=== PATIENT | male | born 1950 | race Caucasian/White ===

== ENCOUNTER → 2016-07-10 | Outpatient (CLI) | payer OTHER ==
[~2016-07-10] MED LIST: ATOR10TA88 PO; CALC600T9 PO; CANA1TAB3 PO; GLIM4TAB PO; METF1000 PO; RXC5 PO; SILD50TA PO; SIMV40TA4 PO; SITA100T3 PO; TELM80TA4 PO
== END | disposition home or self-care (01) ==
LOC: C.PATHSPEC 15:23
PROVIDERS: ATTEND Dermatology
DX: L81.4 Other melanin hyperpigmentation (principal); L57.0 Actinic keratosis

== ENCOUNTER → 2016-08-19 | Outpatient (CLI) | payer OTHER ==
--- NOTE | 2016-08-19 10:36 | DIAGNOSTIC IMAGING REPORT ---
CT LUNG SCREENING, LOW DOSE WITH COMPUTER-AIDED DETECTION (CAD) CLINICAL HISTORY: NICOTINE DEPENDENCE, LOW DOSE LUNG SCREENING COMPARISON STUDY: Chest CT dated 05/18/2013. CT DOSE: 93.81 mGy.cm TECHNIQUE: Low-dose helical CT was acquired without intravenous contrast from lung apices to bases and reconstructed at 2.5 mm every 2 mm. CAD was utilized for this study. FINDINGS: Thyroid: Imaged portions of the thyroid gland are normal in appearance. Thoracic aorta: There is evidence carotid calcification of the thoracic aorta. There is mild aneurysmal dilatation of the ascending thoracic aorta which measures up to 4.2 cm in diameter. The remainder of the thoracic aorta is normal in caliber and the arch demonstrates bovine variant anatomy. Heart: The heart is top normal in size and without pericardial effusion. There is moderate to advanced atherosclerotic calcification of the coronary arteries. The pulmonary trunk is dilated measuring up to 3.5 cm. This suggests pulmonary artery hypertension. Lungs and pleural spaces: Emphysematous change is noted. No airspace consolidation or pleural effusion is identified. The trachea and central airways are clear. Scattered calcified granulomas are observed. No concerning pulmonary lesion is seen. Mediastinum: There is no mediastinal lymphadenopathy. Nancy: Not well assessed without IV contrast. Axilla: Clear. Upper abdomen: There is a tiny hiatal hernia. Partially visualized upper abdominal viscera is otherwise within normal limits. Skeletal structures: There are no lytic or blastic osseous lesions. Degenerative change is noted throughout the thoracic spine. IMPRESSION: 1. Emphysema. 2. There is no airspace consolidation or pleural effusion. 3. No concerning pulmonary lesion is identified. See below. 4. There is mild aneurysmal dilatation of the ascending thoracic aorta which measures up to 4.2 cm diameter. Consider thoracic surgical follow-up. CAD FINDINGS: Overall Lung RADS Category: 1 Lung RADS Management Recommendation: Lung-RADS 1: Continue annual screening in 12 months. Lung RADS Follow Up Date: 2017-08-19 Lung RADS Nodule ID: Electronically signed by: Noah Shaw M.D. 08/19/2016 10:34 AM Dictated Date/Time: 08/19/2016 10:22 AM
== END | disposition home or self-care (01) ==
LOC: C.CTS 09:52
PROVIDERS: ATTEND Internal Medicine
DX: F17.200 Nicotine dependence, unspecified, uncomplicated (principal); J43.9 Emphysema, unspecified; I71.2 Thoracic aortic aneurysm, without rupture

== ENCOUNTER → 2016-11-19 | Outpatient (CLI) | payer OTHER ==
[~2016-11-19] MED LIST changes: +ATOR10TA82 PO; -ATOR10TA88 PO
== END ==
LOC: C.PATHSPEC 17:19
PROVIDERS: ATTEND Plastic Surgery
DX: C43.59 Malignant melanoma of other part of trunk (principal)

== ENCOUNTER → 2016-11-24 | Outpatient (CLI) | payer OTHER ==
[2016-11-24 12:48] LABS: BASO % 0.6 %; BASO ABS # 0.04 K/uL (0-0.2); COMPLETE YES; EOS % 1.6 %; HEMATOCRIT 46.4 % (42-52); IG% 0.3 %; LYMPH % 28.2 %; LYMPH ABS # 1.97 K/uL (1.2-3.4); MEAN CELL VOLUME 86.9 fL (80-100); MEAN CORPUSCULAR HEMOGLOBIN 30.1 pg (25-34); MEAN CORPUSCULAR HGB CONC 34.7 g/dl (32-36); MEAN PLATELET VOLUME 9.9 fL (7.4-10.4); MONO % 6.9 %; NEUT % 62.4 %; PLATELET COUNT 193 K/uL (130-400); RED BLOOD COUNT 5.34 M/uL (4.7-6.1); WHITE BLOOD COUNT 6.98 K/uL (4.8-10.8)
[2016-11-24 13:25] LABS: ESTIMATED AVERAGE GLUCOSE 160 mg/dl; HA1C FLAG Normal (Normal)
[2016-11-24 14:27] LABS: ALT/SGPT 25 U/L (12-78); BLOOD UREA NITROGEN 11 mg/dl (7-18); BUN/CREATININE RATIO 11.3 (10-20); CALCIUM 9.9 mg/dl (8.5-10.1); CARBON DIOXIDE 31 mmol/L (21-32); CHLORIDE 98 mmol/L (98-107); CHOLESTEROL 116 mg/dl (0-200); CREATININE 0.95 mg/dl (0.60-1.40); GLUCOSE 102 mg/dl (70-99); SODIUM 136 mmol/L (136-145)
[2016-11-24 14:30] LABS: ALB/GLOB RATIO 1.4 (0.9-2); ALKALINE PHOSPHATASE 70 U/L (45-117); AST/SGOT 14 U/L (15-37); CHOLESTEROL/HDL RATIO 2.6; HDL CHOLESTEROL 45 mg/dl; LDL CHOLESTEROL CALCULATED 50 mg/dl; TRIGLYCERIDES 107 mg/dl (0-150); VERY LOW DENSITY LIPOPROT CALC 21 mg/dl
== END | disposition home or self-care (01) ==
LOC: C.LABBFT 08:42
PROVIDERS: ATTEND Internal Medicine
DX: E11.9 Type 2 diabetes mellitus without complications (principal); E55.9 Vitamin D deficiency, unspecified; E78.5 Hyperlipidemia, unspecified

== ENCOUNTER → 2017-01-15 | Outpatient (CLI) | payer OTHER ==
[~2017-01-15] MED LIST changes: -ATOR10TA82 PO; +ATOR10TA88 PO
[2017-01-15 14:43] LABS: BLOOD UREA NITROGEN 10 mg/dl (7-18)
== END | disposition home or self-care (01) ==
LOC: C.LABBC 11:29
PROVIDERS: ATTEND Internal Medicine
DX: E11.9 Type 2 diabetes mellitus without complications (principal); M54.16 Radiculopathy, lumbar region; R15.9 Full incontinence of feces

== ENCOUNTER → 2017-01-22 | Outpatient (CLI) | payer OTHER ==
[~2017-01-22] MED LIST changes: +GADAVIST IV PRN
--- NOTE | 2017-01-22 10:43 | DIAGNOSTIC IMAGING REPORT ---
ORBIT RADIOGRAPHS 3 VIEWS HISTORY: pre-MRI screening. COMPARISON: Head CT May 18, 2013 FINDINGS: There are no radiopaque foreign bodies identified within the orbits. IMPRESSION: No radiopaque foreign bodies identified within the orbits. Electronically signed by: Richard Pak M.D. 01/22/2017 10:42 AM Dictated Date/Time: 01/22/2017 10:41 AM
--- NOTE | 2017-01-22 12:14 | DIAGNOSTIC IMAGING REPORT ---
LUMBAR SPINE MRI WITH AND WITHOUT CONTRAST HISTORY: Lower body dysfunction. Loss of strength within the lower extremities. LUMBAR RADICULOPATHY TECHNIQUE: Multiplanar multisequence MRI of the lumbar spine was performed both before and after the intravenous administration of contrast. COMPARISON: Lumbar spine 01/16/2015. FINDINGS: For the purpose of the report the L5-S1 disc space will be located on axial image 27 of 30. No fracture or subluxation. The conus terminates at the T12-L1 disc space level. Severe disc space narrowing at L3-L4 and L4-L5 with endplate osteophytes. Mild facet degenerative changes throughout the lumbar spine. Paraspinal soft tissues are unremarkable. A 6 mm cyst within the left kidney. Minimal endplate enhancement at L3-L4 is likely due to the long-standing degenerative change. L1-L2: No significant central canal or neural foraminal narrowing. Tiny broad-based posterior disc bulge. L2-L3: Small broad-based posterior disc bulge with facet hypertrophy resulting in minimal central canal and mild bilateral neural foraminal narrowing. There is also a left foraminal annular tear. L3-L4: Broad-based posterior disc bulge with severe ligamentum hypertrophy and mild facet hypertrophy. This results in severe central canal narrowing with the thecal sac measuring 5 mm in AP diameter. Moderate right and mild left neural foraminal narrowing. L4-L5: Small broad-based posterior disc bulge resulting in mild central canal and [id number] bilateral neural foraminal narrowing. L5-S1: No significant central canal or neural foraminal narrowing. IMPRESSION: 1. Broad-based posterior disc bulge with severe ligamentum hypertrophy at L3-L4 resulting in severe central canal narrowing. There is also moderate right and mild left neural foraminal narrowing at this level. 2. Mild central canal and [id number]-agmcfveh bilateral neural foraminal narrowing at L4-L5. Electronically signed by: Av Cummins M.D. 01/22/2017 12:13 PM Dictated Date/Time: 01/22/2017 12:05 PM
== END | disposition home or self-care (01) ==
LOC: C.MRIBC 10:14
PROVIDERS: ATTEND Internal Medicine
DX: M51.16 Intervertebral disc disorders with radiculopathy, lumbar region (principal)

== ENCOUNTER 2017-03-02 05:48 | Inpatient (IN) | payer OTHER ==
[2017-02-25 11:49] VITALS: BMI 25.0
--- NOTE | 2017-02-25 12:33 | PAT Medication Instructions ---
Service Date Feb 25, 2017. Current Home Medication List Atorvastatin (Lipitor), 10 MG PO HS Calcium Carbonate-Vitamin D (Calcium + D), 600 MG PO BID Canagliflozin (Invokana), 150 MG PO BID Glimepiride (Amaryl), 4 MG PO BID Metformin Hcl (Glucophage), 1,000 MG PO BID Sildenafil Citrate (Viagra), 50 MG PO PRN Sitagliptin Phosphate (Januvia), 100 MG PO QPM Telmisartan-Hydrochlorothiazid (Micardis Hct 80MG/12.5MG), 1 TAB PO QAM Medication Instructions For Your Scheduled Surgery - Hold the following medications 48 hours prior to surgery: Metformin Hcl (Glucophage), 1,000 MG PO BID - Hold the following medications the morning of surgery: Calcium Carbonate-Vitamin D (Calcium + D), 600 MG PO BID Canagliflozin (Invokana), 150 MG PO BID Glimepiride (Amaryl), 4 MG PO BID Sildenafil Citrate (Viagra), 50 MG PO PRN Telmisartan-Hydrochlorothiazid (Micardis Hct 80MG/12.5MG), 1 TAB PO QAM - Take the following medications as scheduled the night before surgery: Sitagliptin Phosphate (Januvia), 100 MG PO QPM Sildenafil Citrate (Viagra), 50 MG PO PRN Glimepiride (Amaryl), 4 MG PO BID Canagliflozin (Invokana), 150 MG PO BID Calcium Carbonate-Vitamin D (Calcium + D), 600 MG PO BID Atorvastatin (Lipitor), 10 MG PO HS If you have any questions please call us at [phone] or [phone] or [phone]
[2017-02-25 12:42] LABS: URINE APPEARANCE CLEAR (CLEAR); URINE BILIRUBIN NEG (NEG); URINE COLOR YELLOW; URINE NITRITE NEG (NEG); URINE PH 5.5 (4.5-7.5); URINE SPECIFIC GRAVITY 1.015 (1.000-1.030); UROBILINOGEN NEG (NEG); ZZUR CULT IF INDIC CLEAN CATCH NO
[2017-02-25 12:49] LABS: MANUAL MICROSCOPIC REQUIRED? NO; REVIEW REQ? NO
[2017-02-25 14:22] LABS: BASO % 0.5 %; BASO ABS # 0.04 K/uL (0-0.2); COMPLETE YES; EOS % 1.6 %; HEMATOCRIT 45.8 % (42-52); IG% 0.5 %; LYMPH % 33.7 %; MEAN CELL VOLUME 87.7 fL (80-100); MEAN CORPUSCULAR HEMOGLOBIN 30.8 pg (25-34); MEAN CORPUSCULAR HGB CONC 35.2 g/dl (32-36); MEAN PLATELET VOLUME 9.7 fL (7.4-10.4); MONO % 10.5 %; NEUT % 53.2 %; PLATELET COUNT 213 K/uL (130-400); RED BLOOD COUNT 5.22 M/uL (4.7-6.1); WHITE BLOOD COUNT 7.42 K/uL (4.8-10.8)
[2017-02-25 14:41] LABS: BUN/CREATININE RATIO 8.9 (10-20); CALCIUM 10.2 mg/dl (8.5-10.1); CREATININE 0.9 mg/dl (0.60-1.40); POTASSIUM 4.3 mmol/L (3.5-5.1)
[2017-03-02] VITALS (12 sets, daily range): BP systolic 87–123; BP diastolic 53–84; PULSE 70–90; TEMP 36.3–36.6; O2SAT 95–100; Ht 185.4 cm; Wt 87.1 kg
[~2017-03-02] VITALS: Ht 185.4 cm; Wt 87.1 kg
[~2017-03-02 05:48] MED LIST changes: -GADAVIST IV PRN; +IV FLUIDS COMPLETED PRN; -RXC5 PO; -SIMV40TA4 PO
[2017-03-02] MEDS ORDERED: CEFAZOLIN 2000 MG/60 ML D5W IV SCH (06:00)
[2017-03-02] MEDS ORDERED: LACTATED RINGER'S 1000ML 1,000 ML IV SCH (06:00)
[2017-03-02] MEDS ORDERED: BUPIVACAINE/EPINEPHRINE 0.5% MPF 1:200,000 30 ML VIAL ONE (06:56)
[2017-03-02] MEDS ORDERED: BACITRACIN 50000 UNIT VIAL ONE (06:57)
[2017-03-02] MEDS ORDERED: ONDANSETRON INJ 2 MG/ML 2 ML VIAL ONE (07:08)
[2017-03-02] MEDS ORDERED: DEXAMETHASONE SOD INJ 4 MG/ML VIAL ONE (07:08)
[2017-03-02] MEDS ORDERED: GLYCOPYRROLATE INJ 0.2 MG/ML VIAL ONE (07:08)
[2017-03-02] MEDS ORDERED: PROPOFOL IV EMULSION 10 MG/ML 20 ML VIAL IV ONE (07:08)
[2017-03-02] MEDS ORDERED: NEOSTIGMINE METHYLSULFATE 1 MG/ML 10ML VIAL ONE (07:08)
[2017-03-02] MEDS ORDERED: HYDROmorphone INJ 2 MG/ML SYR/VIAL ONE (07:08)
[2017-03-02] MEDS ORDERED: LIDOCAINE HCL 2% 2 ML VIAL (20MG/ML) ONE (07:08)
[2017-03-02] MEDS ORDERED: MIDAZOLAM HCL 1 MG/ML 2ML VIAL ONE (07:08)
[2017-03-02] MEDS ORDERED: FENTANYL CITRATE INJ 50 MCG/1 ML 2 ML VIAL ONE (07:08)
[2017-03-02] MEDS ORDERED: ROCURONIUM BROMIDE 10 MG/ML 5 ML VIAL IV ONE ×2 (07:08→09:48)
--- NOTE | 2017-03-02 07:29 | History & Physical Bridge Note ---
H&P Re-Evaluation Bridge Note: I have examined the patient, reviewed the History & Physical and in the interval since the performance of the History & Physical I have noted the following changes of clinical significance: No changes noted
--- NOTE | 2017-03-02 07:30 | History and Physical ---
History & Physical Date Mar 02, 2017. Chief Complaint Back and leg pain History of Present Illness The patient is a 66 year old male with complaints of back and leg pain Allergies Coded Allergies: No Known Allergies (Unverified , 03/02/17) Home Medications Scheduled Atorvastatin (Lipitor), 10 MG PO HS Calcium Carbonate-Vitamin D (Calcium + D), 600 MG PO BID Canagliflozin (Invokana), 150 MG PO BID Glimepiride (Amaryl), 4 MG PO BID Metformin Hcl (Glucophage), 1,000 MG PO BID Sildenafil Citrate (Viagra), 50 MG PO PRN Sitagliptin Phosphate (Januvia), 100 MG PO QPM Telmisartan-Hydrochlorothiazid (Micardis Hct 80MG/12.5MG), 1 TAB PO QAM Diagnosis Lumbar spinal stenosis Plan of Treatment Lumbar decompression and fusion L3 to L5
[2017-03-02] MEDS ORDERED: ALBUT/IPRATROP 3MG/0.5MG NEB 3 ML VIAL INH STA (07:53)
[2017-03-02] MEDS ORDERED: PHENYLEPHRINE 100MCG/ML 5ML SYR ONE (08:25)
[2017-03-02] MEDS ORDERED: EpHEDrine SULFATE INJ 50 MG/ML AMP IV PRN (08:30)
[2017-03-02] MEDS ORDERED: PHENYLEPHRINE 100MCG/ML 5ML SYR IV PRN (08:30)
[2017-03-02] MEDS ORDERED: ONDANSETRON INJ 2 MG/ML 2 ML VIAL IV PRN ×2 (08:30→09:45)
[2017-03-02] MEDS ORDERED: ATROPINE SULFATE 0.1 MG/ML 5ML SYR IV PRN (08:30)
[2017-03-02] MEDS ORDERED: hydrOXYzine HCL 25 MG TAB PO PRN (09:45)
[2017-03-02] MEDS ORDERED: LORAZEPAM 0.5 MG TAB PO PRN (09:45)
[2017-03-02] MEDS ORDERED: SODIUM CHLORIDE 0.9% 1000ML 1,000 ML IV SCH (09:45)
[2017-03-02] MEDS ORDERED: BISACODYL 10 MG SUPP PR PRN (09:45)
[2017-03-02] MEDS ORDERED: DO NOT ADMINISTER FLU VACCINE PRN ×3 (09:45)
[2017-03-02] MEDS ORDERED: ACETAMINOPHEN IV 100 ML IV PRN (09:45)
[2017-03-02] MEDS ORDERED: DO NOT ADMINISTER PNEUMOCOCCAL VACCINE PRN ×2 (09:45)
[2017-03-02] MEDS ORDERED: SOD PHOSPHATE/SOD BIPHOSPHATE ENEMA 132 ML BTL PR PRN (09:45)
[2017-03-02] MEDS ORDERED: ACETAMINOPHEN 500 MG TAB PO PRN (09:45)
[2017-03-02] MEDS ORDERED: MAGNESIUM HYDROXIDE SUSP 30 ML UDC PO PRN (09:45)
[2017-03-02] MEDS ORDERED: FAMOTIDINE 20 MG TAB PO PRN (09:45)
[2017-03-02] MEDS ORDERED: PROMETHAZINE HCL INJ 12.5 MG in SODIUM CHLORIDE 0.9% 50ML 50 ML IV PRN (09:45)
[2017-03-02] MEDS ORDERED: DC PCA PRN (09:45)
[2017-03-02] MEDS ORDERED: LORAZEPAM INJ 0.5 MG in SYRINGE 0.75 ML IV PRN (09:45)
[2017-03-02] MEDS ORDERED: METOCLOPRAMIDE HCL INJ 5 MG/ML 2 ML VIAL IV PRN (09:45)
[2017-03-02] MEDS ORDERED: NALOXONE HCL 0.4 MG/1 ML VIAL/CARP IV PRN ×2 (09:45)
--- NOTE | 2017-03-02 09:51 | [facility] Operative Report ---
Operative Report Operative Date Mar 02, 2017. Pre-Operative Diagnosis Lumbar Spinal Stenosis Post-Operative Diagnosis Lumbar Spinal Stenosis Procedure(s) Performed #1 lumbar decompression medial facetectomy foraminotomies L2 3 L3 4 L4 5. #2 posterior spinal fusion L3 4 L4 5. #3 placement of posterior segmental instrumentation L3 4 L4 5 #4 placement of locally harvested morcellized autograft in the posterior lateral gutters. #5 placement of ostial amp bone graft in the posterior lateral gutters. Surgeon Dr. Navarrete Sandwich Hand Surgeon(s) Zeynep Barrow PA-C Findings Severe spinal stenosis Specimens none per surgeon Description of Procedure Patient was met with preoperatively case discussed all questions are dressed. After informed consent patient was taken to the operative suite underwent intubation placed in a prone position on the Maxim table on top of the Fer frame. All bony prominences were well-padded eyes inspected to ensure no external pressure. The lumbar spines prepped and draped in normal sterile fashion. Sharp dissection with the assistance of Bovie cautery was performed onto an exposing the lamina and transverse processes of L3 L4-L5 bilaterally. From a caudal to cephalad fashion complete laminectomy of L4 L3 and partial laminectomy of L2 was performed addressing severe central lateral recess disease. After this complete pedicle screws were placed in L3 L4-L5 bilaterally with assistance of fluoroscopy the purposes mirza locked in position. A cross-link was locked in position. Transverse processes of L3 L4-L5 were burred to subcortical bleeding bone. Ostial amp local harvested morcellized autograft was placed and posterior gutters. 15 round BAHMAN drain inserted. Incision was then closed with 1 Vicryl fascia 2-0 Vicryl subcutaneous and 4 Monocryl for final skin closure Steri-Strip sterile dressing placed patient with continued PACU stable condition. Please note Zeynep Forde was present throughout the entire procedure involved in patient positioning complex portions of the surgery and final skin closure. I attest to the content of the Intraoperative Record and any orders documented therein. Any exceptions are noted below.
[2017-03-02] MEDS ORDERED: HYDROmorphone HCL 0.5MG/ML 50 ML CASSETTE ONE ×2 (10:04→10:16)
[2017-03-02] MEDS ORDERED: FLOSEAL HEMOSTATIC MATRIX 10ML TOP ONE (10:12)
[2017-03-02] MEDS: HYDROmorphone INJ 2 MG/ML SYR/VIAL IV PRN ×2 (10:17→10:25)
--- NOTE | 2017-03-02 10:18 | DIAGNOSTIC IMAGING REPORT ---
Radiology LUMBAR SPINE 2 OR 3 VIEW CLINICAL HISTORY: 66 years-old Male presenting with L3-L4 DECOMP/FUSION/INTERBODY. TECHNIQUE: 2 fluoroscopic spot image(s) obtained as part of an intraoperative procedure. COMPARISON: None. FINDINGS/IMPRESSION: Posterior transpedicular screw and mirza fixation of L3-L5 with laminectomy defect of L4. Normal anatomic alignment. Please see surgical report for further details. Fluoroscopy dosage (mGy): Not available. Fluoroscopy time: 19 seconds. Number of fluoroscopic spot images: 2. Electronically signed by: Robert Whitney M.D. 03/02/2017 10:17 AM Dictated Date/Time: 03/02/2017 10:16 AM
[2017-03-02] MEDS ORDERED: PHARMACY GLYCEMIC MGMT CONSULT SCH (10:23)
--- NOTE | 2017-03-02 10:54 | Pharmacy Progress Note ---
Glycemic Control Intl Consult Date of Service Mar 02, 2017. Scope Glycemic Pharmacist consulted by Dr Navarrete on 03/02/17 for glycemic control and to write orders per [facility] inpatient glycemic control protocol Objective Weight (Kilograms): 87.10 Accuchecks BSG (last 24hrs): Test 03/02/17 06:09 03/02/17 10:13 Bedside Glucose 182 mg/dl (70-99) 164 mg/dl (70-99) HbA1c Item Value Date Time Hemoglobin A1c 7.2 % H 11/24/16 0911 Estimated Average Glucose 160 mg/dl 11/24/16 0911 Recent Pertinent Medications Outpatient Anti-diabetic Regimen (per med rec): * Invokana 150 mg PO BID * Januvia 100 mg QPM * Metformin 1 g PO BIDM * Amaryl 4 mg PO BIDM * A1c = 7.2 % 11/24/16 Risk Factors for Insulin Resistance: * Steroids: high dose dexamethasone intraop and postop X 3 doses * Recent Surgery: POD #0 * Diet Assessment & Plan ASSESSMENT: * 66 yo diabetic M admitted s/p lumbar decompression * High dose dexamethasone will cause BSGs to spike and trend higher than normal over the next 48-72 hours * My plan initially will be to hold all oral medications and initiate wt based/ stress of 3 basal/bolus regimen * Over the next 48 hours I will continue basal/bolus regimen and loosen as steroid effects dissipate until patient is discharged PLAN FOR INPATIENT GLYCEMIC CONTROL: * Hold outpatient oral diabetes medications * Basal insulin with LANTUS 30 units SQ X 1, then continue BID scale starting tonight * BSG <140 give 12 units * 140-180 give 17 units * BSG >180 give 25 units * Correctional Insulin with NOVOLOG per scale ACHS + 00,04 checks tonight only, then remove * Goal Range: Low 110 mg/dL - High 140 mg/dL * Correction Factor: 15 mg/dL/unit (loosen over next 48 hours) * Nutritional / Prandial insulin per carb ratio of 1 unit per 5 grams CHO consumed (loosen over next 48 hours) * Please note that the plan above was derived based on current level of insulin resistance and hospital stress. These recommendations are appropriate for inpatient admission only. Plan of care upon discharge will need to be reassessed to avoid potential outpatient hypo/hyperglycemia. Thank you.
--- NOTE | 2017-03-02 11:26 | Anesthesiology Progress Note ---
Anesthesia Post Op Note Date & Time Mar 02, 2017 at 11:26 Vital Signs Pain Intensity: 4 Vital Signs Past 12 Hours Date Time Temp Pulse Resp B/P (MAP) Pulse Ox O2 Delivery O2 Flow Rate FiO2 03/02/17 10:45 36.2 67 16 112/60 100 Nasal Cannula 4 03/02/17 10:35 72 16 114/60 100 Nasal Cannula 4 03/02/17 10:25 85 16 115/62 100 Nasal Cannula 4 03/02/17 10:15 91 16 101/85 100 Oxymask 10 03/02/17 10:05 77 16 104/69 98 Oxymask 10 03/02/17 09:59 36.3 90 16 131/63 100 Oxymask 10 03/02/17 07:30 70 12 97 Room Air 03/02/17 06:24 36.6 70 20 117/65 96 Room Air Notes Mental Status: alert / awake / arousable, participated in evaluation Pt Amnestic to Procedure: Yes Nausea / Vomiting: adequately controlled Pain: adequately controlled Airway Patency, RR, SpO2: stable & adequate BP & HR: stable & adequate Hydration State: stable & adequate Anesthetic Complications: no major complications apparent
[2017-03-02] MEDS ORDERED: INSULIN GLARGINE SOLOSTAR 100 UNITS/ML 3 ML PEN SC ONE ×2 (11:30→11:45)
[2017-03-02] MEDS: LACTATED RINGER'S 1000ML 1,000 ML IV SCH ×2 (12:26→18:56)
[2017-03-02] MEDS: INSULIN ASPART 100 UNITS/ML 3 ML PEN SC SCH ×3 (12:36→21:22)
[2017-03-02] MEDS ORDERED: RXC5 PO (13:30)
--- NOTE | 2017-03-02 13:30 | Discharge Instructions ---
Discharge Instructions Date of Service Mar 02, 2017. Admission Reason for Admission: Lumbar Spinal Stenosis Discharge Discharge Diagnosis / Problem: lumbar spinal stenosis Discharge Goals Goal(s): Improve function Activity Recommendations Activity Limitations: per Instructions/Follow-up section . Instructions / Follow-Up Instructions / Follow-Up ACTIVITY RECOMMENDATIONS: SELF CARE INSTRUCTIONS AFTER THORACIC/LUMBAR FUSIONS 1. You may walk to your tolerance. It is good exercise for your legs and back. Expect some back and intermittent leg aches and pains. 2. You may perform "counter-top" level activities (make a sandwich, sylvester with a project, etc.). 3. No bending or lifting of more than 10 pounds or back twisting of any nature (roll like a log when turning in bed). 4. You may ride in a car for 20-30 minutes at a time. No driving until after your first visit with your doctor. 5. Frequent changes of position and restricting sitting to 30 minutes at a time will help limit the amount of back spasms and stiffness you may experience. 6. You may discontinue the use of ambulatory aids (cane, crutches, etc.) once your strength and confidence allow. 7. You may hand drawer in helper the shower and let water strike your incision when you arrive home at least once daily. Do not take a tub bath, sit in a hot tub or go into a swimming pool until after your first recheck in the office. SPECIAL CARE INSTRUCTIONS: VERY IMPORTANT TO READ AND REVIEW A. Your surgical incision has been closed with a cosmetic suture under the skin that will dissolve in about 6 weeks. In 14 days, you can use a pair of clean scissors and cut the suture that is left outside of the skin at the ends of your incision. 1. The small skin tapes can be removed 7 days after surgery if they have not fallen off by that point. 2. You may keep the wound open to air as much as possible to promote healing after post-op day number 5 unless told otherwise by your doctor. 3. If you think the wound looks like it is becoming infected (redness or worsening drainage) and/or you are experiencing fever, chill or worsening back pain and muscle spasms, contact the office so that we may evaluate you as soon as possible. B. Complications are uncommon, but please contact us if you have any signs or symptoms of: 1. wound infection (fever higher than 102.5 degrees F, redness, separation of wound, drainage, or increasing pain from the incision) 2. blood clots in legs (pain, swelling, redness and warmth in legs) 3. urinary tract infection (fever higher than 102.5 degrees F, burning upon urination or increased frequency of urination) 4. nerve problems (inability to walk on your toes or heels, numbness, loss of bowel or bladder control) 5. any other symptoms that concern you C. Please call the office at if you have any concerns or questions about your operation or recovery. D. No smoking! Smoking drastically decreases the chance of a solid fusion. E. Do not take any anti-inflammatory medications (Indocin, Advil, Motrin, Aspirin, Naprosyn, etc.) as these may inhibit the chance of a solid fusion. Tylenol is okay to take for pain. MANAGING PAIN AFTER SPINAL SURGERY 1. Narcotic medication is intended for short-term use and will be provided for surgical pain. Surgical pain usually lasts for a period of 4-6 weeks. Narcotic medication includes Percocet, Vicodin, Darvocet, Tylenol #3 or Lortab. 2. Longer-term pain is more appropriately treated with non-narcotic medication such as Tylenol ES. 3. Muscle spasm is not appropriately treated with narcotics. Muscle relaxers such as Soma, Flexeril or Skelaxin can be used along with Tylenol ES. 4. Remember that we all live with some "aches and pains". This is not unusual or uncommon after an injury or as we get older. a. Back pain is expected and may include muscle spasms for 4 to 6 weeks after surgery. The pain should gradually improve. If the pain worsens for no apparent reason, please contact the office. b. Intermittent leg pain may also be experienced and should not be concerned about unless it worsens for no apparent reason. If so, please contact the office. 5. We will provide appropriate medication within the normal guidelines of their prescribed use. We will also be very cautious and aware of potential abuse and extended duration of patients' medication needs. a. Pain medications are for your comfort and to assist with sleep and rest so that the tissue can heal. They are not provided in order to return to normal activity and should not be used through the day. To do so or worsening pain at night can result from ongoing tissue damage and development of tolerance to the prescribed medicine. 6. Please allow 2-3 days to process refills. Prescriptions will not be mailed but must be picked up at the office. FOLLOW UP VISIT: Keep your scheduled follow-up appointment. Any questions, please call the office at . Current Hospital Diet Patient's current hospital diet: Diabetes Type 2 Diet Discharge Diet Recommended Diet: Regular Diet Procedures Procedures Performed: #1 lumbar decompression medial facetectomy foraminotomies L2 3 L3 4 L4 5.#2 posterior spinal fusion L3 4 L4 5. #3 placement of posterior segmentalinstrumentation L3 4 L4 5 #4 placement of locally harvested morcellizedautograft in the posterior lateral gutters. #5 placement of ostial ampbone graft in the posterior lateral gutters. Pending Studies Studies pending at discharge: no Medical Emergencies . Who to Call and When: Medical Emergencies: If at any time you feel your situation is an emergency, please call 911 immediately. . Non-Emergent Contact Non-Emergency issues call your: Primary Care Provider . "Provider Documentation" section prepared by Chris Navarrete. . VTE Core Measure Inpt VTE Proph given/why not?: Lzi Fox, SCD's
[2017-03-02] MEDS: HYDROmorphone HCL 0.5MG/ML 50 ML CASSETTE IV PRN ×2 (15:08→23:08)
[2017-03-02] MEDS: DEXAMETHASONE INJ 6 MG in SYRINGE 0 ML IV SCH (16:26)
[2017-03-02] MEDS: CEFAZOLIN IV 2,000 MG in DEXTROSE 5% 50ML 50 ML IV SCH (16:26)
[2017-03-02] MEDS ORDERED: SITAGLIPTIN 100 MG TAB PO SCH (21:00)
[2017-03-02] MEDS ORDERED: GLIMEPIRIDE 2 MG TAB PO SCH (21:00)
[2017-03-02] MEDS: ATORVASTATIN 10 MG TAB PO SCH (21:16)
[2017-03-02] MEDS: DOCUSATE SODIUM/SENNA 50/8.6MG TAB PO SCH (21:17)
[2017-03-02] MEDS: INSULIN GLARGINE SOLOSTAR 100 UNITS/ML 3 ML PEN SC SCH (21:21)
[2017-03-03] MEDS: CEFAZOLIN IV 2,000 MG in DEXTROSE 5% 50ML 50 ML IV SCH (00:33)
[2017-03-03] MEDS: LACTATED RINGER'S 1000ML 1,000 ML IV SCH (00:33)
[2017-03-03] MEDS: DEXAMETHASONE INJ 6 MG in SYRINGE 0 ML IV SCH ×2 (00:34→08:30)
[2017-03-03] MEDS: INSULIN ASPART 100 UNITS/ML 3 ML PEN SC SCH ×6 (00:37→20:53)
[2017-03-03 03:50] VITALS: BP 114/58; PULSE 83; TEMP 36.7; O2SAT 98
[2017-03-03] MEDS ORDERED: NURSING VERBAL MED ORDER ONE (05:45)
[2017-03-03] MEDS ORDERED: HYDROmorphone INJ 0.5 MG/0.5 ML SYR IV PRN (06:00)
[2017-03-03] MEDS ORDERED: HYDROmorphone INJ 1 MG/ML SYR IV PRN (06:00)
[2017-03-03] MEDS ORDERED: OXYCODONE HCL IR 5 MG TAB (IMMEDIATE RELEASE) PO PRN (06:00)
[2017-03-03 06:32] LABS: COMPLETE YES; HEMATOCRIT 36.7 % (42-52); IG% 0.1 %; LYMPH % 5.7 %; LYMPH ABS # 0.79 K/uL (1.2-3.4); MEAN CELL VOLUME 86.8 fL (80-100); MEAN CORPUSCULAR HEMOGLOBIN 29.6 pg (25-34); MEAN CORPUSCULAR HGB CONC 34.1 g/dl (32-36); MEAN PLATELET VOLUME 9.5 fL (7.4-10.4); MONO % 3.7 %; NEUT % 90.5 %; PLATELET COUNT 199 K/uL (130-400); RED BLOOD COUNT 4.23 M/uL (4.7-6.1); WHITE BLOOD COUNT 13.83 K/uL (4.8-10.8)
[2017-03-03 07:04] VITALS: BP 97/60; PULSE 74; TEMP 36.8; O2SAT 99
[2017-03-03 07:09] LABS: CALCIUM 9.1 mg/dl (8.5-10.1); CREATININE 0.84 mg/dl (0.60-1.40); POTASSIUM 4.2 mmol/L (3.5-5.1)
[2017-03-03] MEDS: HYDROCHLOROTHIAZIDE 25 MG TAB PO SCH (08:30)
[2017-03-03] MEDS: TELMISARTAN 40 MG TAB PO SCH (08:31)
[2017-03-03] MEDS: INSULIN GLARGINE SOLOSTAR 100 UNITS/ML 3 ML PEN SC SCH ×2 (08:41→20:52)
--- NOTE | 2017-03-03 09:41 | Progress Note ---
Progress Note Date of Service Mar 03, 2017. Progress Note Patient is doing very nicely postoperatively. Back pain is controlled. Denies any leg pain. He is inflating halls with therapy. On exam is good strength testing appears comfortable. Assessment status post lumbar depression fusion replant this time will continue physical therapy advance his bowel regiment anticipate home .
[2017-03-03 11:48] VITALS: BP 112/53; PULSE 84; TEMP 36.7; O2SAT 99
[2017-03-03 15:11] VITALS: BP 94/56; PULSE 69; TEMP 36.8; O2SAT 99
[2017-03-03] MEDS: ATORVASTATIN 10 MG TAB PO SCH (20:49)
[2017-03-03] MEDS: DOCUSATE SODIUM/SENNA 50/8.6MG TAB PO SCH (20:49)
[2017-03-03 23:02] VITALS: BP 123/59; PULSE 86; TEMP 36.8; O2SAT 98
[2017-03-04] MEDS ORDERED: POLYETHYLENE (MIRALAX) 17 GM PACK PO SCH (06:00)
[2017-03-04 06:51] VITALS: BP 106/53; PULSE 74; TEMP 36.5; O2SAT 100
[2017-03-04] MEDS: HYDROCHLOROTHIAZIDE 25 MG TAB PO SCH (07:28)
[2017-03-04] MEDS: TELMISARTAN 40 MG TAB PO SCH (07:28)
[2017-03-04] MEDS: INSULIN ASPART 100 UNITS/ML 3 ML PEN SC SCH (07:32)
[2017-03-04] MEDS: INSULIN GLARGINE SOLOSTAR 100 UNITS/ML 3 ML PEN SC SCH (07:33)
--- NOTE | 2017-03-04 09:21 | Pharmacy Progress Note ---
Glycemic: Assessment & Plan Date of Service Mar 04, 2017. Assessment & Plan ASSESSMENT: * 66 yo diabetic M admitted s/p lumbar decompression * High dose dexamethasone given X 4 doses and BSGs responded as expected * Initiated wt based/stress dose basal/bolus regimen and BSGs very well controlled * Now steroid effects are dissipating and it is time to pull back on the regimen * Hold Lantus this AM and only give tonight if BSG >140 * Loosen Novolog today and restart oral meds tomorrow for discharge PLAN FOR INPATIENT GLYCEMIC CONTROL: * Hold outpatient oral diabetes medications through today * Restart oral meds tomorrow for discharge * Hold basal insulin this AM and only give tonight if BSG >140 * Correctional Insulin with NOVOLOG per scale ACHS * Goal Range: Low 110 mg/dL - High 140 mg/dL * Correction Factor: 35 mg/dL/unit * Nutritional / Prandial insulin per carb ratio of 1 unit per 10 grams CHO consumed * Please note that the plan above was derived based on current level of insulin resistance and hospital stress. These recommendations are appropriate for inpatient admission only. Plan of care upon discharge will need to be reassessed to avoid potential outpatient hypo/hyperglycemia.
[2017-03-04 10:58] VITALS: BP 106/53; PULSE 74; TEMP 36.5; O2SAT 100
--- NOTE | 2017-03-04 13:43 | Discharge Summary ---
Orthopedic Discharge Summary Admission Date/Reason Mar 02, 2017 at 07:30 Lumbar Spinal Stenosis. Discharge Date/Disposition Mar 04, 2017 Home with services Diagnosis Principal Diagnosis: Lumbar spinal stenosis Admission Physical Exam As per Admitting History & Physical. Hospital Course Patient underwent lumbar decompression fusion tolerated this well as taken to the orthopedic floor postoperatively. Postoperative day #1 is up and amatory noticing a marked improvement of his leg symptoms. He progressed to postoperative day #2 and subsequently discharge home with home health. Discharge orders and instructions found on the chart for further review. Discharge Instructions Please refer to the electronic Patient Visit Report (Discharge Instructions) for additional information.
[2017-03-05] MEDS ORDERED: GLIMEPIRIDE 2 MG TAB PO SCH (08:30)
[2017-03-05] MEDS ORDERED: METFORMIN HCL 500 MG TAB PO SCH (08:30)
[2017-03-05] MEDS ORDERED: SITAGLIPTIN 100 MG TAB PO SCH (17:45)
== END 2017-03-04 12:38 | disposition home health service (06) | DRG 460 ==
LOC: C.ACU 05:48 → C.3E 07:30 → ENRESERV 10:48
PROVIDERS: ADMIT Orthopaedic Surgery Orthopaedic Surgery of the Spine; ATTEND Orthopaedic Surgery Orthopaedic Surgery of the Spine
PROC: 01NB0ZZ Release Lumbar Nerve, Open Approach (ICD-10-PCS; principal; 2017-03-02 07:45)
PROC: 0SG1071 Fusion of 2 or more Lumbar Vertebral Joints with Autologous Tissue Substitute, Posterior Approach, Posterior Column, Open Approach (ICD-10-PCS; principal; 2017-03-02 07:45)
DX: M48.061 Spinal stenosis, lumbar region without neurogenic claudication (principal); I71.2 Thoracic aortic aneurysm, without rupture; M54.16 Radiculopathy, lumbar region; Z15.09 Genetic susceptibility to other malignant neoplasm; H53.9 Unspecified visual disturbance; E11.42 Type 2 diabetes mellitus with diabetic polyneuropathy; I10 Essential (primary) hypertension; K21.9 Gastro-esophageal reflux disease without esophagitis; K76.0 Fatty (change of) liver, not elsewhere classified; D03.9 Melanoma in situ, unspecified; E56.9 Vitamin deficiency, unspecified; F17.200 Nicotine dependence, unspecified, uncomplicated; Z83.71 Family history of colonic polyps

== ENCOUNTER 2017-06-16 09:11 | Emergency (ER) | payer OTHER ==
[~2017-06-16] VITALS: Ht 185.4 cm; Wt 89.7 kg
[~2017-06-16 09:11] MED LIST changes: +ATOR10TA82 PO; -ATOR10TA88 PO; -IV FLUIDS COMPLETED PRN; +RXC5 PO
[2017-06-16 09:15] VITALS: TEMP 36.8; Ht 185.4 cm; Wt 89.7 kg
--- NOTE | 2017-06-16 09:31 | EMERGENCY ROOM VISIT NOTE ---
History Report prepared by Mateus: Dipak Nevarez Under the Supervision of: Dr. Adama Sarah M.D. 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 He denies any headache or pain at this time. He has a past medical history of a major back surgery about 3 months ago and has been following up with Dr. Navarrete of [facility]. Earlier this morning, the patient was walking outside when he accidentally slipped on the ice. He fell onto his buttocks, but he struck his head as well. He does not remember the entire episode and believes that he lost consciousness for a couple of seconds. He is experiencing some back tightness but no significant pain. He denies any fevers, chills, neck pain, chest pain, shortness of breath, nausea, vomiting, diarrhea, weakness, or numbness. He is able to ambulate normally without difficulty. 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 A total of 10 systems reviewed and were otherwise negative. Past Medical & Surgical Medical Problems: (1) Lumbar stenosis with neurogenic claudication Family History Patient reports no known family medical history. Social History Smoking Status: Former Smoker Smokeless Tobacco Use: No Drug Use: none Marital Status: Housing Status: lives with family Occupation Status: employed Current/Historical Medications Scheduled Atorvastatin (Lipitor), 10 MG PO HS Canagliflozin (Invokana), 150 MG PO BID Glimepiride (Amaryl), 4 MG PO BID Metformin Hcl (Glucophage), 1,000 MG PO BID Sildenafil Citrate (Viagra), 50 MG PO PRN Sitagliptin Phosphate (Januvia), 100 MG PO QPM Telmisartan-Hydrochlorothiazid (Telmisartan/Hydrochloroth 80-12.5 mg), 1 TAB PO QAM Zinc Gluconate (Zinc), 100 MG PO DAILY Scheduled PRN Oxycodone/Acetaminophen 5MG/325MG (Percocet 5MG/325MG), 1-2 TAB PO Q4H PRN for Pain Allergies Coded Allergies: No Known Allergies (Unverified , 06/16/17) Physical Exam Vital Signs Date Time Temp Pulse Resp B/P (MAP) Pulse Ox O2 Delivery O2 Flow Rate FiO2 06/16/17 10:56 80 18 113/61 99 06/16/17 09:15 36.8 83 18 136/72 98 Room Air Physical Exam GENERAL: Patient is a healthy-appearing well-nourished male HEAD: Normocephalic atraumatic EYES: Ocular movements intact pupils equal and react to light OROPHARYNX mucous membranes are moist no exudates present no erythema or edema present NECK: Supple no nuchal rigidity CHEST: Good equal expansion LUNGS: Clear and equal to auscultation CARDIAC: Normal S1 and S2 ABDOMEN: Soft nontender no guarding BACK: No CVA tenderness, able to walk on tiptoes and heels, no saddle anesthesia. There is an old surgical site noted that is healing well. EXTREMITIES: No pain upon palpation normal muscle strength in all groups no clubbing cyanosis or edema NEURO: Patient is following commands and answering questions appropriately. Alert and oriented x3 Cranial Nerves 2-12 grossly intact Medical Decision & Procedures ER Provider Diagnostic Interpretation: Radiology results as stated below per my review and radiologist interpretation: PELVIS 1 OR 2 VIEW ROUTINE CLINICAL HISTORY: Fall. COMPARISON STUDY: Pelvis radiograph January 16, 2015. FINDINGS: The sacroiliac joints and symphysis pubis are intact. No fracture is identified within the pelvis or hips. There is mild to moderate arthritis of both hips, greater on the left. Multifocal soft tissue calcifications along the bilateral inferior pubic rami is chronic. Bowel anastomosis is noted projecting of the right lower quadrant. Postoperative findings within lumbar spine are better depicted on the lumbar spine radiographs. IMPRESSION: No acute fracture within the pelvis or hips. Electronically signed by: Richard Pak M.D. 06/16/2017 10:20 AM Dictated Date/Time: 06/16/2017 10:19 AM L-SPINE MIN 4 VIEWS ROUTINE CLINICAL HISTORY: Low back pain status post fall. COMPARISON: Lumbar spine radiographs January 16, 2015 and lumbar spine MRI January 22, 2017. FINDINGS: The patient is status post posterior decompression with bilateral pedicle screw fusion from L3 through L5. Hardware is intact. There is no acute fracture. Moderate to severe disc space narrowing at L3-L4 and L4-L5 is noted. IMPRESSION: 1. No acute lumbar spine fracture or subluxation. 2. Status post posterior decompression with bilateral pedicle screw fusion from L3 through L5. Hardware intact. Electronically signed by: Richard Pak M.D. 06/16/2017 10:22 AM Dictated Date/Time: 06/16/2017 10:20 AM HEAD WITHOUT CONTRAST (CT) CLINICAL HISTORY: 66 years-old Male with Pt c/o fall, LOC. Acute fall with loss of consciousness. TECHNIQUE: Multiple axial CT images of the head were obtained without contrast. A dose lowering technique was utilized adhering to the principles of ALARA. CT DOSE: 537.48 mGy.cm COMPARISON: CT head 05/18/2013. FINDINGS: No acute intracranial hemorrhage, midline shift, intracranial mass, hydrocephalus, territorial ischemia or abnormal extra-axial collection. The calvarium is intact. The paranasal sinuses, mastoid air cells, and middle ear cavities are clear. 5.2 x 0.9 cm right posterior parietal scalp hematoma is noted near the vertex. IMPRESSION: 1. No acute intracranial abnormality. 2. Small right posterior parietal scalp hematoma without calvarial fracture. The above report was generated using voice recognition software. It may contain grammatical, syntax or spelling errors. Electronically signed by: Ryder Walton M.D. 06/16/2017 10:06 AM Dictated Date/Time: 06/16/2017 9:59 AM Medications Administered Medications (Trade) Dose Ordered Sig/Sukh Route Start Time Stop Time Status Last Admin Dose Admin Ibuprofen (Motrin Tab) 600 mg NOW STAT PO 06/16/17 10:39 06/16/17 10:40 DC 06/16/17 10:49 600 MG ED Course 0917: Past medical records reviewed. The patient was evaluated in room A2. A complete history and physical examination was performed. 1039: Ordered Motrin Tab 600 mg PO 1050: Upon reexamination the patient is resting. I discussed results and treatment plan with the patient. He verbalizes agreement and understanding. The patient is ready for discharge. Medical Decision Differential diagnosis: Etiologies such as fracture, dislocation, intra-abdominal, pneumothorax, intrathoracic , intracranial, neurologic, as well as other traumatic pathologies were entertained. This is a 66-year-old male who presents emergency department complaining of falling and hitting his head. The patient believes he lost consciousness therefore he was sent for CAT scan of the head. This did not show any acute intracranial abnormality. The patient's hardware is also in place in his back. He was given Motrin here in the emergency department. I do feel that the patient as well as to be discharged home for follow-up with his primary care physician. Patient was in agreement with the treatment plan. Medication Reconcilliation Current Medication List: was personally reviewed by me Blood Pressure Screening Patient's blood pressure: Elevated blood pressure Blood pressure disposition: Elevated BP felt to be situational Impression Primary Impression: Fall Additional Impressions: Head injury Back pain Scribe Attestation The scribe's documentation has been prepared under my direction and personally reviewed by me in its entirety. I confirm that the note above accurately reflects all work, treatment, procedures, and medical decision making performed by me. Departure Information Dispostion Home / Self-Care Prescriptions Oxycodone/Acetaminophen 5MG/325MG (PERCOCET 5MG/325MG) Tab 1-2 TAB PO Q4H Y for Pain, #14 TAB Prov: Adama Sarah MD 06/16/17 Referrals Suresh Self M.D. (PCP) Chris Navarrete D.O. Forms HOME CARE DOCUMENTATION FORM, IMPORTANT VISIT INFORMATION, School Instructions, Work Instructions Patient Instructions Back Pain Relieve, ED Back Care Tips, ED Exercises Lumbar Muscles, ED Head Injury Closed, ED Low Back Pain Injury, [facility] Additional Instructions Follow up with DR Navarrete's office for continued back pain You received narcotic or benzodiazepene medication while in the emergency room today. This is an addictive medication that may cause drowziness as well as constipation. Do not drive, operate heavy machinery, or drink alcohol under the influence of this medication. Take 600 mg Ibuprofen every 6 hours Take Percocet for breakthrough pain You have been examined and treated today on an emergency basis only. This is not a substitute for, or an effort to provide, complete comprehensive medical care. It is impossible to recognize and treat all injuries or illnesses in a single emergency department visit. It is therefore important that you follow up closely with Dr Self. Call as soon as possible for an appointment. Thank you for your time and consideration. I look forward to speaking with you again soon. Please don't hesitate to call us if you have any questions. Problem Qualifiers Primary Impression: Fall Encounter type: initial encounter Qualified Codes: W19.XXXA - Unspecified fall, initial encounter Additional Impressions: Head injury Encounter type: initial encounter Qualified Codes: S09.90XA - Unspecified injury of head, initial encounter Back pain Back pain location: low back pain Chronicity: acute Back pain laterality: midline Sciatica presence: without sciatica Qualified Codes: M54.5 - Low back pain
[2017-06-16] MEDS ORDERED: TELM1TAB PO (09:59)
[2017-06-16] MEDS ORDERED: ZINC1TAB4 PO (09:59)
--- NOTE | 2017-06-16 10:07 | DIAGNOSTIC IMAGING REPORT ---
HEAD WITHOUT CONTRAST (CT) CLINICAL HISTORY: 66 years-old Male with Pt c/o fall, LOC. Acute fall with loss of consciousness. TECHNIQUE: Multiple axial CT images of the head were obtained without contrast. A dose lowering technique was utilized adhering to the principles of ALARA. CT DOSE: 537.48 mGy.cm COMPARISON: CT head 05/18/2013. FINDINGS: No acute intracranial hemorrhage, midline shift, intracranial mass, hydrocephalus, territorial ischemia or abnormal extra-axial collection. The calvarium is intact. The paranasal sinuses, mastoid air cells, and middle ear cavities are clear. 5.2 x 0.9 cm right posterior parietal scalp hematoma is noted near the vertex. IMPRESSION: 1. No acute intracranial abnormality. 2. Small right posterior parietal scalp hematoma without calvarial fracture. The above report was generated using voice recognition software. It may contain grammatical, syntax or spelling errors. Electronically signed by: Ryder Walton M.D. 06/16/2017 10:06 AM Dictated Date/Time: 06/16/2017 9:59 AM
--- NOTE | 2017-06-16 10:22 | DIAGNOSTIC IMAGING REPORT ---
PELVIS 1 OR 2 VIEW ROUTINE CLINICAL HISTORY: Fall. COMPARISON STUDY: Pelvis radiograph January 16, 2015. FINDINGS: The sacroiliac joints and symphysis pubis are intact. No fracture is identified within the pelvis or hips. There is mild to moderate arthritis of both hips, greater on the left. Multifocal soft tissue calcifications along the bilateral inferior pubic rami is chronic. Bowel anastomosis is noted projecting of the right lower quadrant. Postoperative findings within lumbar spine are better depicted on the lumbar spine radiographs. IMPRESSION: No acute fracture within the pelvis or hips. Electronically signed by: Richard Pak M.D. 06/16/2017 10:20 AM Dictated Date/Time: 06/16/2017 10:19 AM
--- NOTE | 2017-06-16 10:24 | DIAGNOSTIC IMAGING REPORT ---
L-SPINE MIN 4 VIEWS ROUTINE CLINICAL HISTORY: Low back pain status post fall. COMPARISON: Lumbar spine radiographs January 16, 2015 and lumbar spine MRI January 22, 2017. FINDINGS: The patient is status post posterior decompression with bilateral pedicle screw fusion from L3 through L5. Hardware is intact. There is no acute fracture. Moderate to severe disc space narrowing at L3-L4 and L4-L5 is noted. IMPRESSION: 1. No acute lumbar spine fracture or subluxation. 2. Status post posterior decompression with bilateral pedicle screw fusion from L3 through L5. Hardware intact. Electronically signed by: Richard Pak M.D. 06/16/2017 10:22 AM Dictated Date/Time: 06/16/2017 10:20 AM
[2017-06-16] MEDS ORDERED: IBUPROFEN 600 MG TAB PO STA (10:39)
[2017-06-16] MEDS ORDERED: OXYC-57 PO (10:40)
[2017-06-16 10:56] VITALS: BP 113/61; PULSE 80; O2SAT 99
== END 2017-06-16 10:56 | disposition home or self-care (01) ==
LOC: C.EDB 09:12 → C.EDA 10:56
DX: S09.90XA Unspecified injury of head, initial encounter (principal); W01.0XXA Fall on same level from slipping, tripping and stumbling without subsequent striking against object, initial encounter; M54.9 Dorsalgia, unspecified; M48.062 Spinal stenosis, lumbar region with neurogenic claudication; Z79.84 Long term (current) use of oral hypoglycemic drugs; Z79.899 Other long term (current) drug therapy; Z87.891 Personal history of nicotine dependence

== ENCOUNTER → 2017-08-27 | Outpatient (CLI) | payer OTHER ==
[~2017-08-27] MED LIST changes: -CALC600T9 PO; +OXYC-57 PO; -RXC5 PO; +TELM1TAB PO; -TELM80TA4 PO; +ZINC1TAB4 PO
--- NOTE | 2017-08-27 09:30 | DIAGNOSTIC IMAGING REPORT ---
CT LUNG SCREENING, LOW DOSE WITH COMPUTER-AIDED DETECTION (CAD) CLINICAL HISTORY: Smoker. Lung screening study. COMPARISON STUDY: 08/19/2016 CT DOSE: 75.95 mGycm TECHNIQUE: Low-dose helical CT was acquired without intravenous contrast from lung apices to bases and reconstructed at 2.5 mm every 2 mm. CAD was utilized for this study. A dose lowering technique was utilized adhering to the principles of ALARA. FINDINGS: Thyroid: Imaged portions of the thyroid gland are normal in appearance. Thoracic aorta: There is dilatation of the ascending thoracic aorta which measures 41 mm in diameter. Heart: There are mild coronary artery calcifications present. Lungs and pleural spaces: There are no pleural effusions. There is no focal pulmonary consolidation. There are no suspicious pulmonary nodules. Mediastinum: There is no mediastinal lymphadenopathy. Nancy: There is no evidence of pathologic hilar adenopathy given the limitations of a noncontrast study Axilla: There is no nodes of pathologic axillary lymphadenopathy Upper abdomen: Partially visualized upper abdominal viscera is within normal limits. Skeletal structures: There are no lytic or blastic osseous lesions. IMPRESSION: 1. Stable mild aneurysmal dilatation of the ascending thoracic aorta measuring 4.1 cm 2. No suspicious pulmonary masses. CAD FINDINGS: Overall Lung RADS Category: 1 Lung RADS Management Recommendation: Continue annual lung cancer screening. Lung RADS Follow Up Date: Lung RADS Nodule ID: Electronically signed by: Casey Bobby M.D. 08/27/2017 9:28 AM Dictated Date/Time: 08/27/2017 9:23 AM
== END | disposition home or self-care (01) ==
LOC: C.CTS 08:47
PROVIDERS: ATTEND Internal Medicine
DX: Z87.891 Personal history of nicotine dependence (principal)

== ENCOUNTER → 2018-01-05 | Outpatient (CLI) | payer OTHER ==
[~2018-01-05] MED LIST changes: -OXYC-57 PO
[2018-01-05 17:20] LABS: CREATININE 0.83 mg/dl (0.60-1.40)
== END | disposition home or self-care (01) ==
LOC: C.LABBFT 15:11
PROVIDERS: ATTEND Physician Assistant Medical
DX: Z01.812 Encounter for preprocedural laboratory examination (principal)

== ENCOUNTER → 2018-01-07 | Outpatient (CLI) | payer OTHER ==
[~2018-01-07] MED LIST changes: +GADAVIST IV PRN
--- NOTE | 2018-01-07 18:04 | DIAGNOSTIC IMAGING REPORT ---
LUMBAR SPINE COMBINATION HISTORY: Pain. Neuropathy. M54.16 Lumbar radiculopathy TECHNIQUE: Multiplanar multisequence MRI of the lumbar spine was performed both before and after the intravenous administration of contrast. COMPARISON: 01/22/2017 FINDINGS: For the purpose of the report the L5-S1 disc space will be located on axial image 27 of 30. Interval laminectomy and fusion at L3-L4 and L5. Unchanged degenerative disc change from L3 through L5. No evidence for compression deformity. No significant postcontrast sagittal enhancement. L1-L2: Minimal broad-based disc bulge. Minimal narrowing of the neuroforamina bilaterally. L2-L3: Broad-based bulging disc with mild impact anterior thecal sac. Moderate narrowing of the neuroforamina bilaterally. L3-L4: Mild broad-based disc bulge. L4-L5: Mild osteophytic narrowing of the neuroforamina bilaterally. L5-S1: No significant central canal or neural foraminal narrowing. IMPRESSION: 1. Interval laminectomy and fusion L3-L5. 2. Unchanging degenerative disc change throughout the lumbar region most prominent from L3 through L5. 3. No abnormal postcontrast enhancement. 4. Mild/moderate narrowing of the bulk of the neuroforamina bilaterally at all levels. 5. No major spinal stenotic change. The above report was generated using voice recognition software. It may contain grammatical, syntax or spelling errors. Electronically signed by: Jc Molina M.D. 01/07/2018 6:03 PM Dictated Date/Time: 01/07/2018 5:57 PM
== END | disposition home or self-care (01) ==
LOC: C.MRI 17:01
PROVIDERS: ATTEND Internal Medicine
DX: M54.16 Radiculopathy, lumbar region (principal); Z98.1 Arthrodesis status